=== PATIENT | male | born 1995 | race African-American/Black ===

== ENCOUNTER 2020-03-02 14:08 | Emergency (ER) | payer OTHER ==
[2020-03-02 14:15] VITALS: BP 125/55
--- NOTE | 2020-03-02 15:04 | ED Physician Documentation ---
History of Present Illness - Stated complaint Stated Complaint: NECK PX - Chief complaint Chief Complaint: Trauma Hd/Nk - History obtained from History obtained from: Patient - History of Present Illness Timing: Today Pain level max: 3 Pain level now: 2 - Additonal information Additional information: 25-year-old male presents to the emergency department stating that his alarm clock went off and he turned his head quickly to the right and now has pain on the left side of his neck. States the pain is mild. Worse with movement, better with rest. No numbness or tingling. No headache. No visual changes. Review of Systems Constitutional: denies: Fever, Chills Cardiac: denies: Chest pain / pressure Respiratory: denies: Cough GI: denies: Vomiting Skin: denies: Rash Neurologic: denies: Headache PD PAST MEDICAL HISTORY - Past Medical History Past Medical History: No - Past Surgical History Past Surgical History: No - Present Medications Home Medications: Ambulatory Orders Medication Instructions Recorded Confirmed No Known Home Medications 03/02/20 03/02/20 - Allergies Allergies/Adverse Reactions: Allergies Allergy/AdvReac Type Severity Reaction Status Date / Time No Known Drug Allergies Allergy Verified 03/02/20 14:11 - Living Situation Living Situation: reports: With family Living Arrangement: reports: At home - Social History Does the pt smoke?: No Does the pt have substance abuse?: No PD ED PE NORMAL - Vitals Vital signs reviewed: Yes - General General: Alert and oriented X 3, No acute distress - HEENT HEENT: PERRL - Neck Neck: Supple, no meningeal sign, No bony TTP, No JVD, No bruit, Other (Mild tend erness on the lateral aspect of the left side of the neck. This is over the trapezius muscle.) - Cardiac Cardiac: RRR - Respiratory Respiratory: No respiratory distress, Clear bilaterally - Derm Derm: Warm and dry - Extremities Extremities: Normal ROM s pain - Neuro Neuro: Alert and oriented X 3, recreation specialist 2-12 intact, No motor deficit, No sensory deficit, Normal speech - Psych Psych: Normal mood, Normal affect Results - Vitals Vitals: Vital Signs - 24 hr 03/02/20 14:12 Temperature 36.9 C Heart Rate 56 L Respiratory 18 Rate Blood Pressure 125/55 L O2 Saturation 100 Oxygen O2 Source Room air PD MEDICAL DECISION MAKING - ED course Complexity details: considered differential, d/w patient ED course: Patient with what appears to be a neck strain. We will utilize Motrin and Tylenol as needed at home. No evidence of infection. No bony tenderness. No evidence of fracture or dislocation. Moving his neck freely during the exam. Patient counseled regarding signs and symptoms for which I believe and urgent re-evaluation would be necessary. Patient with good understanding of and agreement to plan and is comfortable going home at this time This document was made in part using voice recognition software. While efforts are made to proofread this document, sound alike and grammatical errors may occur. Departure - Departure Disposition: 01 Home, Self Care Clinical Impression: Neck muscle strain Qualifiers: Encounter type: initial encounter Qualified Code(s): S16.1XXA - Strain of muscle, fascia and tendon at neck level, initial encounter Condition: Good Instructions: ED Sprain Strain Neck Follow-Up: your,doctor in 1 week [Other] Comments: You can use Motrin or Tylenol for pain. This will improve on its own. Follow- up with your doctor as needed for further care Discharge Date/Time: 03/02/20 15:04
== END 2020-03-02 15:04 | disposition home or self-care (01) ==
LOC: ED 14:08
DX: S16.1XXA Strain of muscle, fascia and tendon at neck level, initial encounter (principal); X58.XXXA Exposure to other specified factors, initial encounter
CPT/HCPCS: 99281; 99282

== ENCOUNTER 2021-09-09 14:48 | Outpatient (CLI) | payer OTHER ==
--- NOTE | 2021-09-10 09:37 | MRI Report ---
PROCEDURE: Ankle LT W/O INDICATIONS: INSTABILITY OF ANKLE TECHNIQUE: Noncontrast Magnetic Resonance Imaging (MRI) of the ankle/hindfoot was performed utilizing the follow ing sequences on a 3.0 Emma Siemens MRI: sagittal T1 spin echo, sagittal STIR, axial PD fast spin ec ho, axial T2 fast spin echo with fat saturation, coronal T2 spin echo with fat saturation, and PD fas t spin echo with fat saturation. COMPARISON: None. FINDINGS: Image quality: Diagnostic. Bones and joints: There is no acute fracture or dislocation. Mild edema involving distal portion of talus adjacent to t alonavicular joint and inferior aspect of talus adjacent to subtalar joint as well as multiple cuneif orms is seen which may represent stress related changes versus mild contusion. No osteochondral injur y of talar dome. Small to moderate amount of posterior subtalar joint effusion is seen. Medial structures: The deltoid ligament and the spring ligament are slightly attenuated with intrasubstance T2 hyperinte nse signal. The posterior tibialis tendon is thickened at the level of distal talus/talonavicular joint. The flex or digitorum longus, and flexor hallucis longus tendons are intact and within normal limits. The post erior tibial neurovascular bundle appears normal within the tarsal tunnel, without extrinsic mass eff ect. Lateral structures: The anterior and posterior distal tibiofibular ligaments are intact. The anterior talofibular ligamen t, posterior talofibular ligament, and calcaneofibular ligament are mildly thickened with intrasubsta nce T2 hyperintense signal suggestive of low-grade sprain/partial thickness tearr. The peroneus longus and peroneus brevis tendons are intact and otherwise unremarkable. The sinus tarsi demonstrates normal fatty signal. Anterior structures: The tibialis anterior, extensor hallucis longus, and extensor digitorum longus tendons appear intact. Thickened dorsal talonavicular ligament with intrasubstance T2 hyperintense signal is noted. Posterior and plantar structures: The Achilles tendon is intact. The medial and lateral bands of the plantar fascia are within normal l imits. IMPRESSION: 1. Mild edema involving multiple tarsal bones as described above suggestive of mild contusion versus stress related changes. No fracture or dislocation. No osteochondral injury of talar dome. Small amou nt of fluid within posterior subtalar joint. No gross loose bodies. 2. Suggestion of tendinosis involving posterior tibialis tendon at the level of distal talus/talonavi cular joint. Suggestion of sprain/low-grade partial thickness tear involving the deltoid ligament and spring ligament. 3. Low-grade sprain/partial thickness tear involving anterior and posterior talofibular ligaments and calcaneofibular ligament. 4. Sprain/partial thickness tear involving dorsal talonavicular ligament. Reviewed by: Bunny Winkler MD on 09/10/2021 9:36 AM PDT Approved by: Bunny Winkler MD on 09/10/2021 9:36 AM PDT Station ID: [id number]
== END 2021-09-09 14:49 | disposition home or self-care (01) ==
LOC: DI 14:48
PROVIDERS: ATTEND Internal Medicine
DX: S93.492A Sprain of other ligament of left ankle, initial encounter (principal); S93.412A Sprain of calcaneofibular ligament of left ankle, initial encounter

== ENCOUNTER 2022-09-26 12:35 | Outpatient (CLI) | payer OTHER ==
[~2022-09-26 12:35] MED LIST: GADOBUTROL 7.5 MMOL/7.5 ML VIAL ONE
[2022-09-26] MEDS ORDERED: GADOBUTROL 7.5 MMOL/7.5 ML VIAL IVP ONE (13:49)
--- NOTE | 2022-09-28 17:51 | MRI Report ---
PROCEDURE: ORBITS/FACE W/WO INDICATIONS: EYELID RETRACTION LEFT UPPER EYELID CONTRAST: GADAVIST 7.3 ML TECHNIQUE: Noncontrast sagittal T1 spin echo, axial FLAIR, axial gradient echo, axial diffusion and ADC acquired through the brain. Coronal STIR, thin-slice axial T1 spin echo through the orbits. After the admin istration of contrast, thin slice axial and coronal T1 spin echo with fat saturation through the orbi ts, axial T1 spin echo with fat saturation through the brain. COMPARISON: None. FINDINGS: Image quality: Excellent. Orbits: Globes are symmetrical. The optic nerves are normal in size, without abnormal signal or enh ancement. No retrobulbar masses or fat abnormalities. The extra-ocular muscles are normal and symme tric in appearance. Lacrimal glands are normal. Optic chiasm is normal. Periorbital soft tissues a ppear normal. CSF spaces: Ventricles are normal in size and shape. Basal cisterns are patent. No extra-axial flu id collections. Brain: No intracranial bleeds or mass effects. No abnormal intracranial enhancement. Suh-white ma tter interface is intact. Diffusion weighted images demonstrate no acute ischemic insults. Pituitar y gland appears normal, without sellar or suprasellar masses. Brainstem appears normal. Normal intr avascular flow voids are present. Skull and face: Calvarial marrow is normal in signal. Sinuses: Sinuses and mastoids are clear. IMPRESSION: No visualized cause of eyelid retraction. Reviewed by: Yulia Vidal MD on 09/28/2022 5:50 PM PDT Approved by: Yulia Vidal MD on 09/28/2022 5:50 PM PDT Station ID: [id number]
== END 2022-09-26 12:36 | disposition home or self-care (01) ==
LOC: DI 12:35
PROVIDERS: ATTEND Ophthalmology
DX: H02.534 Eyelid retraction left upper eyelid (principal)
CPT/HCPCS: 70543; A9585